=== PATIENT | female | born 1965 | race African-American/Black ===

== ENCOUNTER 2021-01-25 00:41 | Inpatient (IN) | payer MEDICAID ==
[~2021-01-25] VITALS: Ht 165.1 cm; Wt 50.8 kg
[2021-01-25] MEDS: ALBUTEROL (0.083%) 2.5MG/3ML NEB HHN SCH ×3 (00:46→01:46)
[2021-01-25] MEDS ORDERED: IPRATROPIUM BROMIDE (0.02%) 0.5MG/2.5ML NEB HHN STA (00:49)
[2021-01-25] MEDS ORDERED: METHYLPREDNISOLONE SOD SUCC 125 MG/2 ML VIAL IV STA (00:49)
[2021-01-25] MEDS ORDERED: ONDANSETRON HCL 4MG/2ML INJ IV STA (00:49)
[2021-01-25] MEDS ORDERED: MAGNESIUM 2 G PREMIX 50 ML IV ONE (01:00)
[2021-01-25 01:30] LABS: CHLORIDE 110 mEq/L (98-107)
[2021-01-25 02:12] LABS: BASOPHILS % 1.5 % (0.0-2.0); EOSINOPHILS % 6.2 % (0.0-5.0); HEMATOCRIT. 40.2 % (36.0-48.0); HEMOGLOBIN. 12.8 g/dL (12.0-16.0); LYMPHOCYTES % 35.9 % (20.0-50.0); MEAN CORPUSCULAR HEMOGLOBIN 26.1 pg (28.0-32.0); MEAN CORPUSCULAR VOLUME 81.9 fL (81.0-99.0); MEAN PLATELET VOLUME 9.1 fl (7.4-10.4); MONOCYTES % 9.5 % (2.0-8.0); NEUTROPHILS % 46.9 % (40.0-76.0); PLATELET 186 x1000/uL (130-400); RED CELL DISTRIBUTION WIDTH 14.6 % (11.6-14.6)
[2021-01-25 02:33] LABS: BG BASE EXCESS -5.1 mmol/L (-2.0-2.0); BG CARBOXYHEMOGLOBIN 0.7 % (0.5-1.5); BG DEOXYHEMOGLOBIN 0.3 % (0.0-5.0); BG FRACTION INSPIRED OXYGEN 100; BG HCO3 ACT 21.7 mmol/L (22.0-26.0); BG METHEMOGLOBIN 0.3 % (0.0-1.5); BG OXYGEN SATURATION 99.7 % (92.0-98.5); BG OXYHEMOGLOBIN 98.7 % (94.0-97.0); BG PCO2 46.9 mmHg (35.0-45.0); BG PH 7.283 (7.350-7.450); BG PO2 514.9 mmHg (75.0-100.0); BG SAMPLE SITE RIGHT RADIAL; BG TOTAL HEMOGLOBIN 13.3 g/dL (12.0-18.0); BG VENT MODE MASK - BIPAP
[2021-01-25] MEDS ORDERED: MAGNESIUM/ALUMINUM HYDROXIDE/SIMETHICONE 30ML UDC PO PRN (10:45)
[2021-01-25] MEDS ORDERED: DOCUSATE SODIUM 100MG CAPSULE PO PRN (10:45)
[2021-01-25] MEDS ORDERED: IPRATROPIUM/ALBUTEROL 0.5-3(2.5)MG/3ML NEB HHN PRN (10:45)
[2021-01-25] MEDS ORDERED: CLONIDINE 0.1MG TABLET PO PRN (10:45)
[2021-01-25] MEDS ORDERED: ACETAMINOPHEN 650MG SUPP PR PRN ×2 (10:45)
[2021-01-25] MEDS ORDERED: ONDANSETRON HCL 4MG/2ML INJ IV PRN (10:45)
[2021-01-25] MEDS: IPRATROPIUM/ALBUTEROL 0.5-3(2.5)MG/3ML NEB HHN SCH ×2 (10:45→16:34)
[2021-01-25] MEDS ORDERED: ACETAMINOPHEN 650MG/20.3ML UDC GT PRN (10:45)
[2021-01-25] MEDS ORDERED: NA PHOS,M-B/NA PHOS,DI-BA ENEMA 118ML PR PRN (10:45)
[2021-01-25] MEDS: METHYLPREDNISOLONE SOD SUCC 125 MG/2 ML VIAL IV SCH ×3 (11:47→23:53)
[2021-01-25] MEDS: ENOXAPARIN 40MG/0.4ML SYR SUBCUT SCH (11:47)
[2021-01-25 19:04] VITALS: BP 110/80
[2021-01-25 19:30] VITALS: BP 96/58
[2021-01-25 20:00] VITALS: BP 103/51
[2021-01-25] MEDS ORDERED: ALBU6.7H9 INH (21:45)
[2021-01-26] VITALS: BP 100/71
[2021-01-26] MEDS: IPRATROPIUM/ALBUTEROL 0.5-3(2.5)MG/3ML NEB HHN SCH ×3 (02:01→13:17)
[2021-01-26 04:00] VITALS: BP 126/57
[2021-01-26] MEDS: METHYLPREDNISOLONE SOD SUCC 125 MG/2 ML VIAL IV SCH ×2 (04:40→11:27)
[2021-01-26 05:26] LABS: HEMATOCRIT. 38.2 % (36.0-48.0); HEMOGLOBIN. 12.3 g/dL (12.0-16.0); MEAN CORPUSCULAR HEMOGLOBIN 25.9 pg (28.0-32.0); MEAN CORPUSCULAR VOLUME 80.6 fL (81.0-99.0); MEAN PLATELET VOLUME 9.3 fl (7.4-10.4); PLATELET 190 x1000/uL (130-400); RED BLOOD CELL COUNT 4.74 mill/uL (4.2-5.4); RED CELL DISTRIBUTION WIDTH 14.4 % (11.6-14.6)
[2021-01-26 06:11] LABS: CHLORIDE 108 mEq/L (98-107)
[2021-01-26 06:24] LABS: LDL CHOLESTEROL 85 mg/dL (5-100)
[2021-01-26 06:25] LABS: HDL CHOLESTEROL 117 mg/dL (40-59)
[2021-01-26 08:15] VITALS: BP 105/70
[2021-01-26 10:25] LABS: BG BASE EXCESS -0.5 mmol/L (-2.0-2.0); BG CARBOXYHEMOGLOBIN 0.3 % (0.5-1.5); BG DEOXYHEMOGLOBIN 4.9 % (0.0-5.0); BG FRACTION INSPIRED OXYGEN 21; BG HCO3 ACT 23.2 mmol/L (22.0-26.0); BG METHEMOGLOBIN 0.1 % (0.0-1.5); BG OXYGEN SATURATION 95.1 % (92.0-98.5); BG OXYHEMOGLOBIN 94.7 % (94.0-97.0); BG PCO2 34.8 mmHg (35.0-45.0); BG PH 7.441 (7.350-7.450); BG PO2 73.9 mmHg (75.0-100.0); BG SAMPLE SITE LEFT BRACHIAL; BG TOTAL HEMOGLOBIN 12.8 g/dL (12.0-18.0); BG VENT MODE ROOM AIR
[2021-01-26] MEDS ORDERED: FLUT1DIS3 INH (10:57)
[2021-01-26] MEDS ORDERED: P50 MT (10:57)
[2021-01-26] MEDS ORDERED: NICO1PAT50 TP (10:57)
[2021-01-26] MEDS ORDERED: ALBU6.7H9 INH (10:57)
[2021-01-26] MEDS ORDERED: NICOTINE 7MG PATCH TD SCH (11:00)
[2021-01-26] MEDS: ENOXAPARIN 40MG/0.4ML SYR SUBCUT SCH (11:28)
[2021-01-26 12:05] VITALS: BP 107/80
[2021-01-26 13:54] VITALS: BP 105/70
[2021-01-26 22:24] LABS: PLATELET ESTIMATE NORMAL
== END 2021-01-26 17:00 | disposition home or self-care (01) | DRG 140 ==
LOC: ER 00:41 → MICUSO 02:38 → EDBD 02:38 → EDBEDREQTM 02:48 → EDBEDREQ 02:48 → EDBEDREQSVC 02:48 → MICUNO 07:20 → MICUSO 08:49 → 6WST 16:47
PROVIDERS: ADMIT Family Medicine; ATTEND Family Medicine
PROC: 5A09357 Assistance with Respiratory Ventilation, Less than 24 Consecutive Hours, Continuous Positive Airway Pressure (ICD-10-PCS; principal; 2021-01-25)
DX: J44.1 Chronic obstructive pulmonary disease with (acute) exacerbation (principal); J96.01 Acute respiratory failure with hypoxia; J96.02 Acute respiratory failure with hypercapnia; J68.0 Bronchitis and pneumonitis due to chemicals, gases, fumes and vapors; F14.90 Cocaine use, unspecified, uncomplicated; Z20.822 Contact with and (suspected) exposure to COVID-19; F17.210 Nicotine dependence, cigarettes, uncomplicated; Z82.49 Family history of ischemic heart disease and other diseases of the circulatory system; Y92.89 Other specified places as the place of occurrence of the external cause
CPT/HCPCS: 36415; 36600; 71045; 80053; 80061; 82375; 82805; 83605; 83880; 84484; 85025; 87426; 93005; 94640; 99291; J1650; J2405; J2930; J3475

== ENCOUNTER 2023-11-21 04:57 | Inpatient (IN) | payer MEDICAID, OTHER ==
[~2023-11-21] VITALS: Ht 167.6 cm; Wt 50.4 kg
[~2023-11-21 04:57] MED LIST: ALBU6.7H3 INH; FLUT1DIS3 INH; NICO1PAT50 TP; P50 MT
[2023-11-21 06:02] LABS: BASOPHILS % 0.5 % (0.0-2.0); EOSINOPHILS % 0.3 % (0.0-5.0); HEMATOCRIT. 37.6 % (36.0-48.0); HEMOGLOBIN. 12.4 g/dL (12.0-16.0); LYMPHOCYTES % 10.6 % (20.0-50.0); MEAN CORPUSCULAR HEMOGLOBIN 27.1 pg (28.0-32.0); MEAN CORPUSCULAR VOLUME 82.1 fL (81.0-99.0); MONOCYTES % 5.8 % (2.0-8.0); NEUTROPHILS % 82.8 % (40.0-76.0); PLATELET 229 x1000/uL (130-400); RED BLOOD CELL COUNT 4.58 mill/uL (4.2-5.4); RED CELL DISTRIBUTION WIDTH 14.3 % (11.6-14.6); WHITE BLOOD COUNT 10.3 x1000/uL (4.5-11.0)
[2023-11-21] MEDS: SODIUM CHLORIDE 0.9% 1000ML BAG (SEPSIS BOLUS) IV ONE (06:05)
[2023-11-21 06:13] LABS: PROTHROMBIN TIME 11.4 sec (9.6-11.0)
[2023-11-21 06:15] LABS: CHLORIDE 105 mEq/L (98-107); POTASSIUM 4.1 mEq/L (3.5-5.1); SODIUM 135 mEq/L (136-145)
[2023-11-21 06:17] LABS: CALCIUM 8.9 mg/dL (8.7-10.4); CARBON DIOXIDE 25 mEq/L (21-32)
[2023-11-21 06:22] LABS: GLUCOSE 94 mg/dL (70-105); UREA NITROGEN BLOOD 9 mg/dL (9-23)
[2023-11-21 06:29] LABS: TROPONIN I HIGH SENSITIVITY < 4 ng/L (3.0-34)
[2023-11-21] MEDS: SODIUM CHLORIDE 0.9% 1,000 ML IV ONE (06:30)
[2023-11-21 06:41] LABS: CLARITY URINE CLEAR (CLEAR); COLOR URINE YELLOW (YELLOW); GLUCOSE URINE NEGATIVE (NEGATIVE); KETONES URINE NEGATIVE (NEGATIVE); LEUKOCYTE ESTERASE URINE TRACE (NEGATIVE); NITRITE URINE POSITIVE (NEGATIVE); OCCULT BLOOD URINE 2+ (NEGATIVE); PROTEIN URINE NEGATIVE (NEGATIVE); SPECIFIC GRAVITY URINE 1.009 (1.005-1.030)
[2023-11-21] MEDS: PIPERACILLIN/TAZO 3.375G/50ML 50 ML IV ONE (07:03)
[2023-11-21] MEDS ORDERED: ACETAMINOPHEN 325MG TABLET PO ONE (08:15)
[2023-11-21 08:49] LABS: BACTERIA URINE 3+; RBC URINE 0-2 /hpf (0-2); SQUAMOUS EPITHELIAL CELL URINE 3+ /lpf (RARE/1+); YEAST URINE NONE SEEN
[2023-11-21] MEDS: VANCOMYCIN 1G PREMIX 200 ML IV ONE (09:40)
[2023-11-21] MEDS: ACETAMINOPHEN 500MG TABLET PO NR (11:11)
[2023-11-21 16:00] VITALS: BP 108/62; PULSE 80; RESP 20; TEMP 98
[2023-11-21] MEDS ORDERED: IPRATROPIUM/ALBUTEROL 0.5-3(2.5)MG/3ML NEB HHN PRN (16:00)
[2023-11-21] MEDS ORDERED: ACETAMINOPHEN 325MG TABLET PO PRN (16:00)
[2023-11-21 16:47] VITALS: BP 108/62; PULSE 65; RESP 17; TEMP 98
[2023-11-21] MEDS: CEFTRIAXONE 1GM/50ML 50 ML IV SCH (17:33)
[2023-11-21 20:00] VITALS: BP 115/70; PULSE 76; RESP 18; TEMP 97.9
[2023-11-22] VITALS: BP 114/72; PULSE 71; RESP 16; TEMP 98.1
[2023-11-22 04:00] VITALS: BP 111/62; PULSE 73; RESP 16; TEMP 98.2
[2023-11-22] MEDS: ONDANSETRON HCL 4MG/2ML INJ IV PRN (05:44)
[2023-11-22 08:00] VITALS: BP 99/63; PULSE 65; RESP 12; TEMP 98.1
[2023-11-22] MEDS ORDERED: LEVO-65 MT (11:15)
[2023-11-22] MEDS: PREDNISONE 20MG TABLET PO SCH (11:50)
[2023-11-22 12:13] VITALS: BP 122/82; PULSE 69; RESP 12; TEMP 98.1
[2023-11-22 16:00] VITALS: BP 109/56; PULSE 95; RESP 18; TEMP 98.2
[2023-11-22] MEDS ORDERED: ALBU18HF2 IH (16:31)
[2023-11-22] MEDS ORDERED: P20 MT (16:31)
[2023-11-22] MEDS ORDERED: FLUT1DIS3 INH (16:31)
[2023-11-22 17:25] LABS: *AMPHETAMINES SCREEN URINE NEGATIVE (NEGATIVE); *BARBITURATES SCREEN URINE NEGATIVE (NEGATIVE); *BENZODIAZEPINES SCREEN URINE NEGATIVE (NEGATIVE); *COCAINE SCREEN URINE PRESUMPTIVE POSITIVE (NEGATIVE); CANNABINOID URINE SCREEN NEGATIVE (NEGATIVE); ECSTASY MDMA SCREEN URINE NEGATIVE (NEGATIVE); METHADONE URINE SCREEN NEGATIVE (NEGATIVE); OPIATES URINE SCREEN NEGATIVE (NEGATIVE); PHENCYCLIDINE URINE SCREEN NEGATIVE (NEGATIVE)
[2023-11-22 17:26] VITALS: BP 119/56; PULSE 69; TEMP 98.2; O2SAT 97
[2023-11-22] MEDS ORDERED: IPRATROPIUM/ALBUTEROL 0.5-3(2.5)MG/3ML NEB HHN SCH (18:00)
[2023-11-22] MEDS ORDERED: BUDESONIDE 0.5MG/2ML NEB HHN SCH (21:00)
[2023-11-22] MEDS ORDERED: GUAIFENESIN 600MG ER TABLET PO SCH (21:00)
== END 2023-11-22 19:35 | disposition home or self-care (01) | DRG 140 ==
LOC: ER 05:09 → 5WST 08:39 → EDBEDREQTM 08:41 → EDBEDREQ 08:41 → 3WST 18:43
PROVIDERS: ADMIT Internal Medicine; ATTEND Internal Medicine
DX: J44.1 Chronic obstructive pulmonary disease with (acute) exacerbation (principal); J96.91 Respiratory failure, unspecified with hypoxia; R64 Cachexia; J06.9 Acute upper respiratory infection, unspecified; N39.0 Urinary tract infection, site not specified; I11.0 Hypertensive heart disease with heart failure; I50.9 Heart failure, unspecified; E78.5 Hyperlipidemia, unspecified; F17.200 Nicotine dependence, unspecified, uncomplicated; I48.91 Unspecified atrial fibrillation; Z68.1 Body mass index [BMI] 19.9 or less, adult; Z20.822 Contact with and (suspected) exposure to COVID-19
CPT/HCPCS: 36415; 71045; 80048; 80305; 81003; 83605; 84484; 85025; 87426; 93005; 99291; J0696; J2405; J2543; J3370; J7030; J7512